=== PATIENT | female | born 1970 | race Caucasian/White ===

== ENCOUNTER 2024-12-16 12:29 | Outpatient (CLI) | payer BC | END 2024-12-16 12:30 | disposition home or self-care (01) | LOC: SCSMRI 12:29 | PROVIDERS: ATTEND Family Medicine | DX: M25.561 Pain in right knee (principal); M25.562 Pain in left knee; M84.361A Stress fracture, right tibia, initial encounter for fracture; M84.362A Stress fracture, left tibia, initial encounter for fracture ==

== ENCOUNTER 2024-12-24 08:26 | Outpatient (CLI) | payer BC | END 2024-12-24 08:27 | disposition home or self-care (01) | LOC: SCSBT 08:26 | PROVIDERS: ATTEND Family Medicine Sports Medicine | DX: S82.132A Displaced fracture of medial condyle of left tibia, initial encounter for closed fracture (principal); M81.0 Age-related osteoporosis without current pathological fracture | CPT/HCPCS: 77080 ==